=== PATIENT | female | born 1970 | race Caucasian/White ===

== ENCOUNTER 2016-08-26 11:11 | Emergency (ER) | payer MEDICARE, MEDICAID ==
[2016-08-26 11:26] VITALS: BP 129/75
--- NOTE | 2016-08-26 11:26 | EDM.PDOC ---
[id number] BROKE RIGHT HAND FELL @ PO Time Seen by Provider: 08/26/16 11:26 Source: Reports: Patient, RN, RN notes reviewed History Limitations: Reports: No limitations - History of Present Illness INITIAL COMMENTS - FREE TEXT/NARRATIVE: [place] that she tripped and fell injuring her right hand. Denies any other injury. Denies head injury or LOC. Symptom Onset Date: 08/26/16 Occurred When: just prior to arrival Occurred Where: other Method of Injury: fall Severity: moderate Pain/Injury Location: Reports: upper extremity, right Consciousness: Reports: no loss of consciousness, remembers incident Associated Symptoms: Reports: no other symptoms Allergies/ADRs: Allergies No Known Allergies Allergy (Verified 08/26/16 11:30) Home Medications: Ambulatory Orders Brexpiprazole [Rexulti] 3 mg PO DAILY 08/26/16 [Confirmed 08/26/16] FLUoxetine [PROzac] 60 mg PO DAILY 08/26/16 [Confirmed 08/26/16] LORazepam [Ativan] 0.5 mg PO PRN 08/26/16 Levothyroxine 25 mcg PO DAILY 08/26/16 [Confirmed 08/26/16] Zolpidem [Ambien] 10 mg PO DAILY 08/26/16 [Confirmed 08/26/16] Past Medical History Psychiatric History: Reports: Anxiety, Depression Endocrine/Metabolic History: Reports: Hypothyroidism, Obesity/BMI 30+ Social & Family History - Family History Family Medical History: Noncontributory - Living Situation & Occupation Occupation: unemployed Review of Systems - Review of Systems Review Of Systems: ROS reveals no pertinent complaints other than HPI. Trauma Exam - Physical Exam Exam: See Below Exam Limited By: No limitations General Appearance: Reports: alert, WD/WN, no apparent distress, obese Head: Reports: atraumatic, normocephalic, facial abrasions (very superficial ( barely visible) abrasion to Rt zygomal face) Eyes: bilateral eye: normal inspection Ears: Reports: normal external exam, hearing grossly normal Nose: Reports: normal inspection Throat/Mouth: Reports: Normal inspection, Normal voice, No airway compromise Neck: Reports: non-tender, full range of motion, normal alignment, normal inspection Respiratory Exam: Reports: no respiratory distress, lungs clear, normal breath sounds Cardiovascular: Reports: normal peripheral pulses, regular rate, rhythm, no edema, no gallop, no JVD, no murmur, no rub Back: Reports: full range of motion Extremities: Reports: pain with movement (Rt hand/fingers 4 & 5), tenderness ( with mild swelling and bruising to ulnar side of Rt hand and 4th & 5th fingers, skin intact). 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, no motor/sensory deficits, alert , normal mood/affect, oriented x 3 Skin: Reports: Warm/dry ED TRAUMA EXTREMITY PROCEDURES - Splinting Right Upper Extremity Splint site: Rt hand Pre-procedure NV status: normal Post-procedure NV status: normal Splint material: metal Splint design: volar Applied & form fitted by: nurse Provider post-splint application NV check: NV status normal, good position Complications: No Course - Vital Signs Last Recorded V/S: Last Vital Signs Temp 36.0 C 08/26/16 11:24 Pulse 81 08/26/16 11:24 Resp 20 08/26/16 11:24 BP 129/75 08/26/16 11:24 Pulse Ox 95 08/26/16 11:24 - Orders/Labs/Meds Orders: Active Orders 24 hr Category Date Time Status Hand Comp Min 3V Rt [CR] Urgent Exams 08/26/16 11:41 Taken - Radiology Interpretation Free Text/Narrative:: Xray Rt hand: no fractures. CT Results Date: 08/26/16 Departure - Departure Time of Disposition: 12:16 Disposition: Home, Self-Care 01 Condition: good Clinical Impression: Contusion of right hand Qualifiers: Encounter type: initial encounter Qualified Code(s): S60.221A - Contusion of right hand, initial encounter Sprain of right hand Qualifiers: Encounter type: initial encounter Qualified Code(s): S63.91XA - Sprain of unspecified part of right wrist and hand, initial encounter Accidental fall Qualifiers: Encounter type: initial encounter Qualified Code(s): W19.XXXA - Unspecified fall, initial encounter Instructions: Hand Contusion, [id number], Finger Sprain, [id number] Forms: ED Department Discharge Additional Instructions: Rest, ice pack, and elevate right hand for swelling and pain. Wear splint as needed for up to 5 days. Follow up in clinic if not improving in 7 to 10 days as expected. - My Orders Last 24 Hours: My Active Orders 08/26/16 11:41 Hand Comp Min 3V Rt [CR] Urgent - Assessment/Plan Last 24 Hours: My Active Orders 08/26/16 11:41 Hand Comp Min 3V Rt [CR] Urgent
--- NOTE | 2016-08-26 13:41 | CR ---
CLINICAL HISTORY: 46-year-old female injured right hand (fall). INTERPRETATION: Chronic osteoarthritic changes involving primarily the first carpometacarpal, first/ second metacarpophalangeal and all interphalangeal/DIP joints right hand. No sign of acute fracture or dislocation. No foreign bodies. CONCLUSION: Arthritis. No fractures.
== END 2016-08-26 12:30 | disposition home or self-care (01) ==
LOC: DL.ED 11:11
DX: S63.91XA Sprain of unspecified part of right wrist and hand, initial encounter (principal); S60.221A Contusion of right hand, initial encounter; E03.9 Hypothyroidism, unspecified; F41.9 Anxiety disorder, unspecified; F32.9 Major depressive disorder, single episode, unspecified; E66.9 Obesity, unspecified; Z68.41 Body mass index [BMI] 40.0-44.9, adult; Z79.899 Other long term (current) drug therapy; W01.0XXA Fall on same level from slipping, tripping and stumbling without subsequent striking against object, initial encounter
CPT/HCPCS: 29125; 73130-RT; 99282; 99284